=== PATIENT | male | born 1965 ===

== ENCOUNTER 2016-11-22 02:30 | Emergency (ER) | payer MEDICARE, OTHER ==
[2016-11-22 02:30] VITALS: BMI 36.9
[2016-11-22 03:07] VITALS: PULSE 82
--- NOTE | 2016-11-22 03:46 | C.PDOC ---
History Of Present Illness 50 Y/O MALE WITH H/O F CHRONIC BACK PAIN PRESENTS TO ER WITH EXACERBATION OF HIS CHRONIC PAIN. PT IS POOR HISTORIAN FALLING ASLEEP DURING HISTORY. DENIES FALL, OR RECENT TRAUMA, NO URINARY OR BOWEL INCONTINENCE. Time Seen by Provider: 11/22/16 02:45 Chief Complaint (Nursing): Back Pain History Per: Patient History/Exam Limitations: no limitations Current Symptoms Are (Timing): Still Present Severity: Mild Pain Scale Rating Of: 4 Previous Symptoms: Back Pain Associated Symptoms: denies: Incontinence, New Weakness, New Numbness Exacerbating Factor(s): Movement Past Medical History Vital Signs: Last Vital Signs Temp 98.5 F 11/22/16 03:03 Pulse 82 11/22/16 03:03 Resp 18 11/22/16 03:03 BP 101/67 11/22/16 03:03 Pulse Ox 95 11/22/16 03:03 - Medical History PMH: Arthritis (KNEES; HANDS), Back Problems, Bipolar Disorder, Depression, HTN , Migraine, Chronic Pain Denies: Colonic Polyps, Fractures, Chronic Kidney Disease - [facility] Procedures SUTURE OF LIP LACERATION (12/25/14) Family History: States: Unknown Family Hx - Social History Hx Tobacco Use: No Hx Alcohol Use: No Hx Substance Use: No - Immunization History Hx Tetanus Toxoid Vaccination: No Hx Influenza Vaccination: No Hx Pneumococcal Vaccination: No Review Of Systems Constitutional: Negative for: Fever Gastrointestinal: Negative for: Vomiting, Abdominal Pain Genitourinary: Negative for: Dysuria, Hematuria Musculoskeletal: Positive for: Back Pain Neurological: Negative for: Weakness, Numbness Physical Exam - Physical Exam Appears: Well, Non-toxic Skin: Normal Color Head: Atraumatic Eye(s): bilateral: Normal Inspection, PERRL Oral Mucosa: Moist Neck: Normal, Supple Chest: Symmetrical, No Tenderness Cardiovascular: Rhythm Regular Respiratory: Normal Breath Sounds, No Wheezing Gastrointestinal/Abdominal: Normal Exam, Soft Back: Normal Inspection, No CVA Tenderness, No Vertebral Tenderness, Paraspinal Tenderness (MILD B/L), No Straight Leg Raising Extremity: Normal ROM Extremity: Bilateral: Atraumatic, Normal Color And Temperature Neurological/Psych: Oriented x3, Normal Speech Gait: Steady ED Course And Treatment O2 Sat by Pulse Oximetry: 95 Pulse Ox Interpretation: Normal Progress Note: PT IS SLEEPING COMFORTABLY IN ED, STATES " I HAVE LITTLE PAIN, CAN I SLEEP?". 5 am- PT GIVEN RX FOR MOTRIN AND ADVISED PMD FOLLOW UP Reassessment Condition: Improved Disposition - Disposition Disposition Time: 03:49 Condition: STABLE Instructions: Chronic Pain (ED) - Clinical Impression Clinical Impression: Back pain, chronic
[2016-11-22 06:45] VITALS: BP 134/86; RESP 20; TEMP 98; O2SAT 97
== END 2016-11-22 06:43 | disposition home or self-care (01) ==
LOC: C.ER 02:30
DX: G89.29 Other chronic pain (principal); M54.9 Dorsalgia, unspecified

== ENCOUNTER 2017-01-09 06:52 | Day surgery (SDC) | payer MEDICARE, OTHER ==
[2017-01-09 07:16] VITALS: BMI 36.1
[2017-01-09 07:45] VITALS: RESP 19; TEMP 97.8; O2SAT 98
[2017-01-09] MEDS ORDERED: Propofol 10 mg/ml Inj (20 ML) ONE ×2 (08:34→09:03)
--- NOTE | 2017-01-09 08:51 | CP.SDSHP ---
Same Day Surgery H & P - History Proposed Procedure: Colonoscopy Pre-Op Diagnosis: Screening for colorectal neoplasm - Previous Medical/Surgical History Misc: Other (Chronic back pain) Previous Surgical History: none - Allergies Allergies: Allergies No Known Allergies Allergy (Verified 10/10/16 07:21) - Current Medications Current Medications: reviewed, per reconciliation - Physical Exam General Appearance: wdwn nad Vital Signs: Vital Signs 01/09/17 01/09/17 07:30 08:43 Temperature 97.8 F 97.8 F Pulse Rate 75 75 Respiratory 19 19 Rate Blood Pressure 129/75 129/75 O2 Sat by Pulse 98 98 Oximetry Mental Status: Alert & Oriented x3 Heart: WNL Lungs: WNL GI: WNL - {Optional Preform as Required} Abdomen: WNL - Impression Impression: Screening colonoscopy, average risk Pt. Evaluated Today:Candidate for Anesthesia & Procedure: Yes - Date & Time Date: 01/09/17 Time: 08:50 Short Stay Discharge - Short Stay Discharge Admitting Diagnosis/Reason for Visit: SCREENING Disposition: HOME/ ROUTINE
[2017-01-09 10:08] VITALS: BP 123/76; PULSE 73
== END 2017-01-09 10:20 | disposition home or self-care (01) ==
LOC: C.ENDO 06:52
PROVIDERS: ATTEND Internal Medicine Gastroenterology
DX: Z12.11 Encounter for screening for malignant neoplasm of colon (principal); D12.4 Benign neoplasm of descending colon; K64.0 First degree hemorrhoids
CPT/HCPCS: 45385; 88305; J2704

== ENCOUNTER 2017-05-26 02:29 | Emergency (ER) | payer MEDICARE, OTHER ==
[2017-05-26 02:38] VITALS: BMI 37.2
[2017-05-26 02:41] VITALS: RESP 20
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
[2017-05-26] MEDS ORDERED: ceFAZolin IV 1 gm in Dextrose 1 GM/50 ML BAG IVPB ONE (04:22)
[2017-05-26 04:25] LABS: BASO # 0.1 K/uL (0.0-0.2); BASO % 0.9 % (0.0-2.0); EOS # 0.1 K/uL (0.0-0.7); LYMPH # 1.7 K/uL (1.0-4.3); LYMPH % 27.8 % (20.0-40.0); MEAN CELL VOLUME 86.9 fL (80.0-94.0); MEAN CORPUSCULAR HEMOGLOBIN 29.9 pg (27.0-31.0); MEAN CORPUSCULAR HGB CONC 34.4 g/dL (33.0-37.0); MEAN PLATELET VOLUME 9.4 fL (7.2-11.7); MONO # 0.6 K/uL (0.0-0.8); MONO % 10.2 % (0.0-10.0); NRBC % 0.2 % (0.0-2.0); WHITE BLOOD COUNT 6.3 K/uL (4.8-10.8)
[2017-05-26 04:37] LABS: ALB/GLOB RATIO 1.4 (1.0-2.1); ALKALINE PHOSPHATASE 67 U/L (38-126); ALT/SGPT 65 U/L (21-72); AST/SGOT 42 U/L (17-59); BILIRUBIN,TOTAL 0.8 mg/dL (0.2-1.3); BLOOD UREA NITROGEN 11 mg/dL (9-20); CALCIUM 8.3 mg/dl (8.6-10.4); CARBON DIOXIDE 24 mmol/L (22-30); CHLORIDE 102 mmol/L (98-107); GFR AFRICAN-AMERICAN > 60; GLUCOSE,RANDOM 99 mg/dL (75-110); POTASSIUM 3.9 mmol/L (3.6-5.2); SODIUM 145 mmol/L (132-148); TOTAL PROTEIN 7.3 g/dL (6.3-8.3)
[2017-05-26] MEDS ORDERED: ceFAZolin 1 gm FROZEN Premix 1 GM/50 ML ML IVPB ONE (04:37)
[2017-05-26 04:52] VITALS: BP 129/89; PULSE 90; TEMP 97.9; O2SAT 96
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
== END 2017-05-26 05:33 | disposition short-term general hospital (02) ==
LOC: C.ER 02:29
DX: S21.112A Laceration without foreign body of left front wall of thorax without penetration into thoracic cavity, initial encounter (principal); X99.8XXA Assault by other sharp object, initial encounter
CPT/HCPCS: 71010; 71250; 80053; 85025; 85610; 85730; 96365; 99285; J0690

== ENCOUNTER 2017-06-01 15:03 | Emergency (ER) | payer MEDICARE, OTHER ==
[2017-06-01 15:03] VITALS: BMI 37.2
[2017-06-01 15:12] VITALS: BP 168/76; PULSE 67; RESP 20; TEMP 98.3; O2SAT 100
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
== END 2017-06-01 15:43 | disposition home or self-care (01) ==
LOC: C.ER 15:03
DX: Z48.02 Encounter for removal of sutures (principal)
CPT/HCPCS: 96372; 99283; J1885

== ENCOUNTER 2017-06-21 18:03 | Emergency (ER) | payer MEDICARE, OTHER ==
[2017-06-21 18:04] VITALS: BMI 37.2
[2017-06-21 18:21] VITALS: RESP 18
--- NOTE | 2017-06-21 19:03 | C.PDOC ---
History Of Present Illness 51 yr old male presents to the ER for evaluation of diffuse middle and lower back pain, gradually developing for the past 2-3 days. Patient states the pain is worse with movement and will occasionally radiates to bilateral lower extremities. Patient reports of similar episode in the past. Patient denies recent trauma or injuries, headache, dizziness, neck pain, cough, chest pain, SOB, dyspnea, diaphoresis, palpitation, nausea, vomiting, abdominal pain, dysuria, incontinence, saddle anesthesia, denies weakness, sensory or vascular deficits to B/L LEs. Patient also requesting evaluation of a growth on the let elbow for the past few months. Ambulate to ED for evaluation, not in any apparent distress. Time Seen by Provider: 06/21/17 18:27 Chief Complaint (Nursing): Abnormal Skin Integrity History Per: Patient History/Exam Limitations: no limitations Onset/Duration Of Symptoms: Days Past Medical History Reviewed: Historical Data, Nursing Documentation, Vital Signs Vital Signs: Last Vital Signs Temp 98.2 F 06/21/17 20:07 Pulse 72 06/21/17 20:07 Resp 18 06/21/17 20:07 BP 124/78 06/21/17 20:07 Pulse Ox 98 06/21/17 20:07 - Medical History PMH: Arthritis (KNEES; HANDS), Back Problems, Bipolar Disorder (NO MED), Depression (NO MED), HTN (NOT TAKING MEDS AT PRESENT), Migraine, Chronic Pain Surgical History: Endoscopy - [facility] Procedures SUTURE OF LIP LACERATION (12/25/14) Family History: States: No Known Family Hx - Social History Hx Tobacco Use: No Hx Alcohol Use: Yes Hx Substance Use: No - Immunization History Hx Tetanus Toxoid Vaccination: No Hx Influenza Vaccination: No Hx Pneumococcal Vaccination: No Review Of Systems Except As Marked, All Systems Reviewed And Found Negative. Constitutional: Negative for: Fever, Chills Cardiovascular: Negative for: Chest Pain Respiratory: Negative for: Cough, Shortness of Breath Gastrointestinal: Negative for: Nausea, Vomiting, Abdominal Pain Genitourinary: Negative for: Dysuria, Incontinence Musculoskeletal: Positive for: Back Pain (Middle and lower back pain) Skin: Positive for: Other ((+) Growth on the left elbow) Neurological: Negative for: Weakness, Numbness Physical Exam - Physical Exam Appears: Well, Non-toxic, No Acute Distress Skin: Warm, Dry, No Rash, Other (2cm in diameter skin mass on peduncle. no cellulitis, no flactulance, no discharges.) Oral Mucosa: Moist Throat: No Drooling Neck: No Midline Cervical Tenderness, No Paracervical Tenderness, No Step Off Deformity, Supple Chest: Symmetrical, No Tenderness Cardiovascular: Rhythm Regular, No Murmur Respiratory: No Decreased Breath Sounds, No Accessory Muscle Use, No Rales, No Rhonchi, No Stridor, No Wheezing Gastrointestinal/Abdominal: Soft, No Tenderness Back: No CVA Tenderness, No Vertebral Tenderness, Paraspinal Tenderness ( Diffuse paraspinal tenderness over the thoracic and lumbar spine. NO midine tenderness, no skin changes.) Extremity: Normal ROM, No Pedal Edema, No Deformity, No Swelling Neurological/Psych: Oriented x3, Normal Speech, Normal Motor, Normal Sensation, Normal Reflexes ED Course And Treatment O2 Sat by Pulse Oximetry: 97 (RA) Pulse Ox Interpretation: Normal Progress Note: On re-evaluation, pt is afebrile, hemodynamicaly stable. PulsEOx 98% RA. ENT: no acute findings. neck: Supple, (-) JVD, (-) carotid bruits. Lungs: CTA B/L, BS equal B/L. ABd: benign. Neuorlogicaly intact. CXR review and appears normal. Pt ahs clinical findings c/w back pain. Pt advised. ref. to F/u with PMD in 2-3 days for re-eavl. return to ED if any worsening or new changes. Medical Decision Making Medical Decision Making: PLAN: * CXR * Urinalysis * Tramadol PO * Toradol IM Disposition Counseled Patient/Family Regarding: Diagnosis, Need For Followup, Rx Given - Disposition Referrals: Domingo Nazario Jr., MD [Medical Doctor] - Disposition: HOME/ ROUTINE Disposition Time: 19:32 Condition: STABLE Additional Instructions: Follow up with PMD in 2-3 days for re-evaluation. Follow up with Dermatology for further evaluation of wart over left elbow. return to ED if any worsening or new changes. 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 - Scribe Statement The provider has reviewed the documentation as recorded by the Scribe Alexia Hsieh All medical record entries made by the Shannonibja were at my direction and personally dictated by me. I have reviewed the chart and agree that the record accurately reflects my personal performance of the history, physical exam, medical decision making, and the department course for this patient. I have also personally directed, reviewed, and agree with the discharge instructions and disposition.
[2017-06-21 19:28] LABS: URINE BILIRUBIN NEGATIVE (NEGATIVE); URINE BLOOD NEGATIVE (NEGATIVE); URINE COLOR Yellow (YELLOW); URINE GLUCOSE (UA) NORMAL (Normal); URINE KETONE NEGATIVE (NEGATIVE); URINE LEUKOCYTE ESTERASE NEG Leu/uL (Negative); URINE PROTEIN NEGATIVE (NEGATIVE); URINE UROBILINOGEN NORMAL mg/dL (0.2-1.0); WBC URINE < 1 /hpf (0-5)
[2017-06-21 20:08] VITALS: BP 124/78; PULSE 72; TEMP 98.2
[2017-06-21 22:22] VITALS: O2SAT 97
--- NOTE | 2017-06-22 09:19 | RAD ---
HISTORY: Cough COMPARISON: Comparison is made to 05/26/2017 TECHNIQUE: Chest PA and lateral FINDINGS: LUNGS: No active pulmonary disease. PLEURA: No significant pleural effusion identified. No pneumothorax apparent. CARDIOVASCULAR: Normal. OSSEOUS STRUCTURES: No significant abnormalities. VISUALIZED UPPER ABDOMEN: Normal. OTHER FINDINGS: None. IMPRESSION: No active disease.
== END 2017-06-21 20:08 | disposition home or self-care (01) ==
LOC: C.ER 18:03
DX: M54.9 Dorsalgia, unspecified (principal)
CPT/HCPCS: 71020; 81001; 96372; 99283; J1885

== ENCOUNTER 2017-12-29 00:18 | Emergency (ER) | payer MEDICARE, OTHER ==
[2017-12-29 00:18] VITALS: BMI 37.2
[2017-12-29 00:25] VITALS: BP 132/91; PULSE 102; RESP 22; TEMP 98.2; O2SAT 97
--- NOTE | 2017-12-29 00:49 | C.PDOC ---
History Of Present Illness 52 year old male with a hisotry of chronic back pain, epidurals in the past, a recent steroid injection to the upper back and is a border line diabetic, presents to the ED concerned that the injections might push him over to becoming a diabetic. Additionally, patient reports of concerns for calluses present on right food. It is noted that the patient has had multiple alf narcotic prescriptions last filled out last week. It was brought to the patient' s attention and told that we would not be offering narcotics. Denies sensory loss, and fecal or urinary incontinence. Time Seen by Provider: 12/29/17 00:27 Chief Complaint (Nursing): Back Pain History Per: Patient Onset/Duration Of Symptoms: Hrs Current Symptoms Are (Timing): Still Present Quality Of Discomfort: "Pain" Previous Symptoms: Back Pain, Chronic Pain (chronic back pain ) Past Medical History Reviewed: Historical Data, Nursing Documentation, Vital Signs Vital Signs: Last Vital Signs Temp 98.2 F 12/29/17 00:23 Pulse 102 H 12/29/17 00:23 Resp 22 12/29/17 00:23 BP 132/91 H 12/29/17 00:23 Pulse Ox 97 12/29/17 01:18 - Medical History PMH: Arthritis (KNEES; HANDS), Back Problems, Bipolar Disorder (NO MED), Depression (NO MED), HTN (NOT TAKING MEDS AT PRESENT), Migraine, Chronic Pain Denies: Colonic Polyps, Fractures, Chronic Kidney Disease Surgical History: Endoscopy - [facility] Procedures SUTURE OF LIP LACERATION (12/25/14) Family History: States: Unknown Family Hx - Social History Hx Tobacco Use: No Hx Alcohol Use: Yes Hx Substance Use: No - Immunization History Hx Tetanus Toxoid Vaccination: No Hx Influenza Vaccination: No Hx Pneumococcal Vaccination: No Review Of Systems Except As Marked, All Systems Reviewed And Found Negative. Musculoskeletal: Positive for: Back Pain (chronic back pain ) Physical Exam - Physical Exam Appears: No Acute Distress, Other (obese) Head: Atraumatic, Normacephalic Eye(s): bilateral: Normal Inspection Nose: Normal Neck: Normal Cardiovascular: Rhythm Regular, No Murmur Respiratory: Normal Breath Sounds, No Rales, No Rhonchi, No Wheezing Gastrointestinal/Abdominal: Soft, No Tenderness Back: Other (bilateral upper back pain in area of trapezius muscles, no pain over spinous processes) Extremity: Normal ROM (good upper extermity strength; 5/5 lower extremity strength throughout. ) Neurological/Psych: Oriented x3 (on cell phone when walked into the room. ) Gait: Steady ED Course And Treatment O2 Sat by Pulse Oximetry: 97 (RA) Pulse Ox Interpretation: Normal Medical Decision Making Medical Decision Making: Time: 120 Impression: Chronic back pain, muscle spasms to upper back Plan: -- Glucose , POC -- Flexeril 10 mg PO -- Toradol 60 mg IM -- We will provide narcotic pain reliever for upper back pain and re-evaluate. Accucheck will be given to check blood sugar levels of patient. Disposition - Disposition Referrals: [facility] [Outside] Disposition: HOME/ ROUTINE Disposition Time: 06:19 Condition: FAIR Instructions: Upper Back Pain Forms: [facility] (Welsh) Print Language: GREEK - Clinical Impression Clinical Impression: Thoracic back pain - Scribe Statement The provider has reviewed the documentation as recorded by the Tony Pak Provider Attestation: All medical record entries made by the Tony were at my direction and personally dictated by me. I have reviewed the chart and agree that the record accurately reflects my personal performance of the history, physical exam, medical decision making, and the department course for this patient. I have also personally directed, reviewed, and agree with the discharge instructions and disposition.
== END 2017-12-29 02:48 | disposition home or self-care (01) ==
LOC: C.ER 00:18
DX: M54.6 Pain in thoracic spine (principal)
CPT/HCPCS: 82948; 96372; 99283; J1885

== ENCOUNTER 2018-02-03 18:50 | Emergency (ER) | payer MEDICARE, OTHER ==
[2018-02-03 18:50] VITALS: BMI 37.2
[2018-02-03 18:56] VITALS: BP 162/80; PULSE 88; RESP 16; TEMP 98.3; O2SAT 97
[2018-02-03] MEDS ORDERED: Lidocaine 5% Patch TD STA (19:50)
[2018-02-03] MEDS ORDERED: Naproxen 550 mg Tab PO STA (19:51)
[2018-02-03] MEDS ORDERED: Oxycodone/Acetaminophen 5/325 mg Tab PO STA (19:51)
[2018-02-03] MEDS ORDERED: Lidocaine 5% Patch TD ONE (19:57)
[2018-02-03] MEDS ORDERED: Oxycodone/Acetaminophen 5/325 mg Tab ONE (19:57)
[2018-02-03] MEDS ORDERED: Naproxen 550 mg Tab PO ONE (19:57)
--- NOTE | 2018-02-03 20:21 | C.PDOC ---
History Of Present Illness 52 year old male, with history of chronic back and neck pain secondary to herniated disc, presents to the ED for evaluation of neck pain. 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 Patient states he ran out of pain medications. He denies abdominal pain, urinary/bowel incontinence, saddle anesthesia, dyrusia, extremity numbness/weakness. Time Seen by Provider: 02/03/18 19:10 Chief Complaint (Nursing): Back Pain History Per: Patient History/Exam Limitations: no limitations Onset/Duration Of Symptoms: Days Current Symptoms Are (Timing): Still Present Quality Of Discomfort: "Pain" Previous Symptoms: Neck Pain Associated Symptoms: denies: Incontinence, New Weakness, New Numbness Additional History Per: Patient Past Medical History Reviewed: Historical Data, Nursing Documentation, Vital Signs Vital Signs: Last Vital Signs Temp 98.3 F 02/03/18 18:54 Pulse 88 02/03/18 18:54 Resp 16 02/03/18 18:54 BP 162/80 H 02/03/18 18:54 Pulse Ox 97 02/03/18 22:16 - Medical History PMH: Arthritis (KNEES; HANDS), Back Problems, Bipolar Disorder (NO MED), Depression (NO MED), HTN (NOT TAKING MEDS AT PRESENT), Migraine, Chronic Pain Denies: Colonic Polyps, Fractures, Chronic Kidney Disease Surgical History: Endoscopy - [facility] Procedures SUTURE OF LIP LACERATION (12/25/14) Family History: States: Unknown Family Hx - Social History Hx Tobacco Use: No Hx Alcohol Use: Yes Hx Substance Use: No - Immunization History Hx Tetanus Toxoid Vaccination: No Hx Influenza Vaccination: No Hx Pneumococcal Vaccination: No Review Of Systems Genitourinary: Negative for: Dysuria Musculoskeletal: Positive for: Neck Pain Neurological: Negative for: Weakness, Numbness Physical Exam - Physical Exam Appears: Non-toxic, No Acute Distress Skin: Normal Color, Warm, Dry, No Rash Head: Atraumatic, Normacephalic Eye(s): bilateral: Normal Inspection, PERRL, EOMI Oral Mucosa: Moist Neck: Normal ROM, No Midline Cervical Tenderness, No Paracervical Tenderness, Supple Chest: Symmetrical, No Deformity, No Tenderness Cardiovascular: Rhythm Regular, No Friction Rub, No Murmur Respiratory: Normal Breath Sounds, No Rales, No Rhonchi, No Stridor, No Wheezing Gastrointestinal/Abdominal: Bowel Sounds (active), Soft, No Tenderness, No Guarding, No Rebound Back: No CVA Tenderness, Muscle Spasm (right-sided, neck ) Extremity: Normal ROM, Capillary Refill (less than 2 seconds ), No Swelling Neurological/Psych: Oriented x3, Normal Speech, Normal Cognition, Normal Motor, Normal Sensation Gait: Steady ED Course And Treatment O2 Sat by Pulse Oximetry: 97 (on RA) Pulse Ox Interpretation: Normal Medical Decision Making Medical Decision Making: Progress: Naproxen PO, Lidoderm TD, Percocet PO administered. Patient's [place] reviewed. Patient received multiple prescriptions for opiates, morphine, and oxycontin PO at the end of 12/2017. On re-exam, the patient reports improvement of symptoms. Lungs are CTA, heart is RRR, ambulatory in the ED with steady gait. Abdomen is soft, non-tender and the patient is tolerating PO well. Was instructed that the ED cannot maintain chronic pain management schedule. Patient is referred to pain management. Disposition - Disposition Referrals: Edgar Monroe MD [Medical Doctor] - Latrell Chaidez MD [Staff Provider] - Eliseo Herring MD [Non-Staff] - Disposition: HOME/ ROUTINE Disposition Time: 20:21 Condition: STABLE Additional Instructions: Follow up with pain manangement within 2-3 days without fail. Return if worsened. Prescriptions: Cyclobenzaprine [Flexeril] 5 mg PO TID #21 tab Lidocaine 5% [Lidoderm] 1 each TP DAILY #10 patch Instructions: Low Back Pain (DC) Forms: [employer] [facility] ([place]tarian) - Clinical Impression Clinical Impression: Chronic low back pain, Cervical pain - PA / SPECIAL EDUCATION INSTRUCTOR / Resident Statement MD/DO has reviewed & agrees with the documentation as recorded. - Scribe Statement The provider has reviewed the documentation as recorded by the Scribe (Bia Quinn) All medical record entries made by the Scribe were at my direction and personally dictated by me. I have reviewed the chart and agree that the record accurately reflects my personal performance of the history, physical exam, medical decision making, and the department course for this patient. I have also personally directed, reviewed, and agree with the discharge instructions and disposition.
== END 2018-02-03 20:30 | disposition home or self-care (01) ==
LOC: C.ER 18:50
DX: G89.29 Other chronic pain (principal); M54.2 Cervicalgia; M54.5 Low back pain

== ENCOUNTER 2018-03-26 19:11 | Emergency (ER) | payer MEDICARE, OTHER ==
[2018-03-26 19:12] VITALS: BMI 37.2
[2018-03-26 19:47] VITALS: BP 117/83; PULSE 89; TEMP 98.5; O2SAT 94
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
[2018-03-26 20:09] VITALS: RESP 20
== END 2018-03-26 20:08 | disposition home or self-care (01) ==
LOC: C.ER 19:11
DX: S39.011A Strain of muscle, fascia and tendon of abdomen, initial encounter (principal); W01.0XXA Fall on same level from slipping, tripping and stumbling without subsequent striking against object, initial encounter

== ENCOUNTER 2018-06-21 14:38 | Emergency (ER) | payer MEDICARE, OTHER ==
[2018-06-21 14:56] VITALS: BMI 36.9
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
[2018-06-21 18:24] LABS: BASO # 0.1 K/uL (0.0-0.2); BASO % 0.9 % (0.0-2.0); EOS # 0.2 K/uL (0.0-0.7); EOS % 3.1 % (0.0-4.0); HEMOGLOBIN 16.9 g/dL (12.0-18.0); LYMPH # 1.7 K/uL (1.0-4.3); LYMPH % 29.2 % (20.0-40.0); MEAN CELL VOLUME 89.1 fL (80.0-94.0); MEAN CORPUSCULAR HEMOGLOBIN 30.3 pg (27.0-31.0); MEAN PLATELET VOLUME 9.7 fL (7.2-11.7); MONO # 0.7 K/uL (0.0-0.8); MONO % 11.7 % (0.0-10.0); NEUT # 3.1 K/uL (1.8-7.0); NEUT % 55.1 % (50.0-75.0); NRBC % 0.8 % (0.0-2.0); RBC 5.56 Mil/uL (4.40-5.90); RED CELL DISTRIBUTION WIDTH 14.9 % (11.5-14.5); WHITE BLOOD COUNT 5.7 K/uL (4.8-10.8)
[2018-06-21 18:38] LABS: BLOOD UREA NITROGEN 12 mg/dL (9-20); CALCIUM 9.5 mg/dl (8.6-10.4); GFR NON-AFRICAN AMERICAN > 60
[2018-06-21 19:46] VITALS: BP 172/85; PULSE 87; RESP 18; TEMP 99.2
--- NOTE | 2018-06-21 20:17 | RAD ---
HISTORY: chest pain COMPARISON: Chest x-ray performed 06/21/17 TECHNIQUE: Chest, one view. FINDINGS: Examination limited by habitus. LUNGS: Hypoinflation. No focal consolidation. Please note that chest x-ray has limited sensitivity for the detection of pulmonary masses. PLEURA: No significant pleural effusion identified. No definite pneumothorax . CARDIOVASCULAR: Cardiomegaly. OSSEOUS STRUCTURES: Degenerative changes of the spine. VISUALIZED UPPER ABDOMEN: Unremarkable. OTHER FINDINGS: None. IMPRESSION: Cardiomegaly. Hypoinflation.
[2018-06-21 20:53] VITALS: O2SAT 95
--- NOTE | 2018-06-23 21:25 | CARD ---
APPROVED REPORT Date of service: 06/21/2018 EKG Measurement Heart [id number] <Conclusion> Normal sinus rhythm Left axis deviation Possible Anterior infarct, age undetermined Abnormal ECG
== END 2018-06-21 19:58 | disposition home or self-care (01) ==
LOC: C.ER 14:38
DX: R07.9 Chest pain, unspecified (principal); I10 Essential (primary) hypertension